=== PATIENT | male | born 1945 | race Caucasian/White ===

== ENCOUNTER 2016-10-21 11:43 | Inpatient (IN) | payer OTHER ==
[2016-10-21 13:57] LABS: % IMMATURE GRANULYOCYTES 0.4 % (0.0-1.1); ABSOLUTE IMMATURE GRANULOCYTES 0.06 10^3/uL (0.00-0.10); ADD DIFF? NO; ADD MORPH? NO; ADD SCAN? NO; ATYPICAL LYMPHOCYTE FLAG 20 (0-99); FRAGMENT RBC FLAG 0 (0-99); HEMATOCRIT 41.2 % (40.0-51.0); LEFT SHIFT FLG 10 (0-99); LIPEMIA HEMOLYSIS FLAG 90 (0-99); MEAN CELL HEMOGLOBIN 29.9 pg (27.9-34.1); MEAN PLATELET VOLUME 9.2 fL (8.7-11.7); PLATELET CLUMPS FLAG 30 (0-99); PLATELET COUNT 292 10^3/uL (150-400); RED BLOOD CELL COUNT 4.68 10^6/uL (4.40-6.38); RED CELL DISTRIBUTION WIDTH 12.5 % (11.5-15.2)
[2016-10-21] MEDS ORDERED: CLINDAMYCIN 900 MG/DEXTROSE 50 ML IV ONE (14:05)
[2016-10-21] MEDS ORDERED: IOPAMIDOL (ISOVUE-300) 100 ML BTL ONE (14:09)
--- NOTE | 2016-10-21 14:10 | EDPHY ---
H & P Stated Complaint: Boil on chin infected since Tuesday. Source: Patient Exam Limitations: No limitations - Personal History Current Tetanus/Diphtheria Vaccine: Unsure Current Tetanus Diphtheria and Acellular Pertussis (TDAP): Unsure - Medical/Surgical History Hx Asthma: No Hx Chronic Respiratory Disease: No Hx Diabetes: No Hx Cardiac Disease: No Hx Renal Disease: No Hx Cirrhosis: No Hx Alcoholism: No Hx HIV/AIDS: No Hx Splenectomy or Spleen Trauma: No Other PMH: Bipolar, appendectomy, cornea transplant x 2. - Social History Smoking Status: Current some day smoker Alcohol Use: None Drug Use: None Time Seen by Provider: 10/21/16 12:55 HPI/ROS: CHIEF COMPLAINT: chin abscess HISTORY OF PRESENT ILLNESS: 71-year-old male emergency department complaining of an abscess on his chin that started on Tuesday. Patient states he noticed a zit under his stahl 1 week ago that he picked. He noticed 2 days ago increased swelling. Patient states today he noticed an odorous drainage. Patient reports poor dental hygiene and a loose tooth on his upper right molar. He denies difficulty opening and closing his mouth. He denies fevers or chills. He denies difficulty swallowing or swelling in his throat. Patient takes no medications daily. He states he has not seen a doctor in 10 years. Unknown tetanus status. REVIEW OF SYSTEMS: A comprehensive 10 point review of systems is otherwise negative aside from elements mentioned in the history of present illness. (Danyell Morales) - Physical Exam Exam: Physical Exam Gen: Alert and Oriented, NAD, talkative HEENT: PERRL, dry mucous membranes, poor dental hygiene, open draining malodorous abscess to chin with swelling to chin, under mandible, posterior pharynx with no swelling, uvula midline, no tenderness to floor of mouth, no pain with talking or range of motion of neck. No trismus. NECK: no meningismus CV: regular rate and regular rhythm PULM: CTAB, no wheezes ABDOMEN: Obese, soft, non tender to palpation, BS present BACK: No CVA tenderness NEURO: Neurologically grossly intact EXTREMITIES: normal appearing SKIN: Multiple erythematous patches to bilateral arms PSYCH: answers questions appropriately. (Danyell Morales) Constitutional: Initial Vital Signs Temperature (C) 36.8 C 10/21/16 11:46 Heart Rate 96 10/21/16 11:46 Respiratory Rate 18 10/21/16 11:46 Blood Pressure 144/91 H 10/21/16 11:46 O2 Sat (%) 96 10/21/16 11:46 O2 Delivery Mode Room Air Allergies/Adverse Reactions: No Known Allergies Allergy (Unverified 10/21/16 11:51) Home Medications: Medication Instructions Recorded NK [No Known Home Meds] 10/21/16 Medical Decision Making - Diagnostics Imaging Results: Imaging Impressions Face CT 10/21/16 13:31 Impression: 1. Large abscess/phlegmon adjacent to the left lower mandible extending inferiorly with complex gas bubbles but no significant fluid component. 2. Erosion in the region of the left first molar in the mandible that could represent focus of osteomyelitis along the superior aspect of the abscess collection. Findings discussed with Danyell Morales NP at 15:19 hour, 10/21/2016.. Neck CT 10/21/16 13:31 Impression: 1. Large abscess/phlegmon adjacent to the left lower mandible extending inferiorly with complex gas bubbles but no significant fluid component. 2. Erosion in the region of the left first molar in the mandible that could represent focus of osteomyelitis along the superior aspect of the abscess collection. Findings discussed with Danyell Morales NP at 15:19 hour, 10/21/2016.. ED Course/Re-evaluation: IV established, CBC, chemistry panel, lactic acid, blood cultures obtained. Wound culture sent to the lab. Patient has a CBC that is elevated at 16,000 thousand with a left shift. Chemistry panel shows a mildly elevated glucose, unremarkable electrolytes. Patient has no airway compromise, no difficulty swallowing, no pain to floor of mouth. I have ordered 900 mg of IV clindamycin. 345pm- I have spoken with Dr. Shannon Maldonado with ENT who will come to the emergency department to drain this patient abscess. She is requesting admission to the hospital for IV antibiotics. 4pm- I spoke with Hospital Medicine about admission of this patient. (Danyell Morales) I did not see this patient while he was in the emergency department. However his care was discussed with the PA while the patient was in the department. I agree with treatment plan and management (Ash Coyle) Differential Diagnosis: Diagnosis considered but not limited to dental abscess, peritonsillar abscess, Seven's angina, retropharyngeal abscess (Danyell Morales) - Data Points Laboratory Results: Laboratory Results 10/21/16 13:36 10/21/16 10/21/16 10/21/16 13:41 13:36 13:36 WBC 14.89 10^3/uL H 10^3/uL (3.80-9.50) RBC 4.68 10^6/uL 10^6/uL (4.40-6.38) Hgb 14.0 g/dL g/dL (13.7-17.5) POC Hgb 15.0 gm/dL gm/dL (13.7-17.5) Hct 41.2 % % (40.0-51.0) POC Hct 44 % % (40-51) MCV 88.0 fL fL (81.5-99.8) MCH 29.9 pg pg (27.9-34.1) MCHC 34.0 g/dL g/dL (32.4-36.7) RDW 12.5 % % (11.5-15.2) Plt Count 292 10^3/uL 10^3/uL (150-400) MPV 9.2 fL fL (8.7-11.7) Neut % (Auto) 84.2 % H % (39.3-74.2) Lymph % (Auto) 5.4 % L % (15.0-45.0) [place] % (Auto) 9.4 % % (4.5-13.0) Eos % (Auto) 0.3 % L % (0.6-7.6) Baso % (Auto) 0.3 % % (0.3-1.7) Nucleat RBC Rel Count 0.0 % % (0.0-0.2) Absolute Neuts (auto) 12.53 10^3/uL H 10^3/uL (1.70-6.50) Absolute Lymphs (auto) 0.80 10^3/uL L 10^3/uL (1.00-3.00) Absolute Monos (auto) 1.40 10^3/uL H 10^3/uL (0.30-0.80) Absolute Eos (auto) 0.05 10^3/uL 10^3/uL (0.03-0.40) Absolute Basos (auto) 0.05 10^3/uL 10^3/uL (0.02-0.10) Absolute Nucleated RBC 0.00 10^3/uL 10^3/uL (0-0.01) Immature Gran % 0.4 % % (0.0-1.1) Immature Gran # 0.06 10^3/uL 10^3/uL (0.00-0.10) VBG Lactic Acid 0.9 mmol/L mmol/L (0.7-2.1) POC Sodium 137 mEq/L mEq/L (134-144) POC Potassium 3.7 mEq/L mEq/L (3.3-5.0) POC Chloride 100 mEq/L mEq/L (97-110) POC BUN 19 mg/dL mg/dL (7-23) POC Creatinine 0.8 mg/dL mg/dL (0.7-1.3) POC Glucose 120 mg/dL H mg/dL (70-100) Microbiology Results: MICROBIOLOGY 10/21/16 13:32 Face - Swab Gram Stain - Final Medications Given: Discontinued Medications Diphtheria/Tetanus/Acell Pertussis (Boostrix) 0.5 ml IM .ONCE ONE Stop: 10/21/16 15:53 Last Admin: 10/21/16 16:42 Dose: 0.5 ml Clindamycin Phosphate/Dextrose (Cleocin 900 Mg (Premix)) 50 mls @ 100 mls/hr IV EDNOW ONE PRN Reason: Protocol Stop: 10/21/16 14:34 Last Admin: 10/21/16 14:38 Dose: 50 mls Point of Care Test Results: 10/21/16 13:41 POC Sodium 137 POC Potassium 3.7 POC Chloride 100 POC BUN 19 POC Creatinine 0.8 POC Glucose 120 H Departure - Departure Disposition: [facility] Inpatient Acute Clinical Impression: Facial abscess Condition: Good
[2016-10-21] MEDS ORDERED: TDAP ADULT 0.5 ML INJ (BOOSTRIX) IM ONE (15:52)
[2016-10-21] MEDS ORDERED: ALBUTEROL 3 ML DEYVIAL IH PRN (16:18)
[2016-10-21] MEDS ORDERED: ONDANSETRON 4 MG/2 ML VIAL IVP PRN (16:18)
[2016-10-21] MEDS ORDERED: HYDROCODONE/APAP 5/325 TAB PO PRN (16:18)
[2016-10-21] MEDS ORDERED: ONDANSETRON DISINTEGRATING 4 MG TAB PO PRN (16:18)
[2016-10-21] MEDS ORDERED: ACETAMINOPHEN 325 MG TAB PO PRN (16:18)
--- NOTE | 2016-10-21 16:25 | PDGENHP ---
History and Physical - Chief Complaint mouth swelling - History of Present Illness 71 yo male with admitted for left mandible abscess. Presented to the ED with 2 days hx of progressive mouth/jaw pain and swelling. CT found to have Left lower mandible abscess with likely osteomyelitis. Started on clindamycin. Afebrile. Denies difficulty swelling, SOB, CP, leg swelling, or other. No recent abx. Has not seen a physician in over 10 years Was seen by ENT in the E.D who appeared to have done a bedside I&D PMHx: bipolar, appendectomy, corneal transplant x 2 Soc Hx: smoker FmHx: non contributory History Information - Allergies/Home Medication List Allergies/Adverse Reactions: No Known Allergies Allergy (Unverified 10/21/16 11:51) Home Medications: NK [No Known Home Meds] 10/21/16 [Last Taken Unknown] I have personally reviewed and updated: medical history, social history - Social History Smoking Status: Current some day smoker Alcohol Use: None Drug Use: None Review of Systems ROS: 10pt was reviewed & negative except for what was stated in HPI & below Physical Exam Temp Pulse Resp BP Pulse Ox 37 C 82 19 129/84 H 98 10/21/16 14:35 10/21/16 14:35 10/21/16 14:35 10/21/16 14:35 10/21/16 14:35 Constitutional: no apparent distress Eyes: PERRL, EOMI Ears, Nose, Mouth, Throat: poor dentition, other (left sided mandible with dressing in place. oropharynx is clear) Cardiovascular: regular rate and rhythym, No JVD Respiratory: no respiratory distress, clear to auscultation Gastrointestinal: normoactive bowel sounds, soft, non-tender abdomen Skin: warm, normal color Neurologic: AAOx3 Psychiatric: interacting appropriately, not encephalopathic Lab Data & Imaging Review 10/21/16 13:36 WBC 14.89 10^3/uL (3.80-9.50) H 10/21/16 13:36 RBC 4.68 10^6/uL (4.40-6.38) 10/21/16 13:36 Hgb 14.0 g/dL (13.7-17.5) 10/21/16 13:36 POC Hgb 15.0 gm/dL (13.7-17.5) 10/21/16 13:41 Hct 41.2 % (40.0-51.0) 10/21/16 13:36 POC Hct 44 % (40-51) 10/21/16 13:41 MCV 88.0 fL (81.5-99.8) 10/21/16 13:36 MCH 29.9 pg (27.9-34.1) 10/21/16 13:36 MCHC 34.0 g/dL (32.4-36.7) 10/21/16 13:36 RDW 12.5 % (11.5-15.2) 10/21/16 13:36 Plt Count 292 10^3/uL (150-400) 10/21/16 13:36 MPV 9.2 fL (8.7-11.7) 10/21/16 13:36 Neut % (Auto) 84.2 % (39.3-74.2) H 10/21/16 13:36 Lymph % (Auto) 5.4 % (15.0-45.0) L 10/21/16 13:36 [place] % (Auto) 9.4 % (4.5-13.0) 10/21/16 13:36 Eos % (Auto) 0.3 % (0.6-7.6) L 10/21/16 13:36 Baso % (Auto) 0.3 % (0.3-1.7) 10/21/16 13:36 Nucleat RBC Rel Count 0.0 % (0.0-0.2) 10/21/16 13:36 Absolute Neuts (auto) 12.53 10^3/uL (1.70-6.50) H 10/21/16 13:36 Absolute Lymphs (auto) 0.80 10^3/uL (1.00-3.00) L 10/21/16 13:36 Absolute Monos (auto) 1.40 10^3/uL (0.30-0.80) H 10/21/16 13:36 Absolute Eos (auto) 0.05 10^3/uL (0.03-0.40) 10/21/16 13:36 Absolute Basos (auto) 0.05 10^3/uL (0.02-0.10) 10/21/16 13:36 Absolute Nucleated RBC 0.00 10^3/uL (0-0.01) 10/21/16 13:36 Immature Gran % 0.4 % (0.0-1.1) 10/21/16 13:36 Immature Gran # 0.06 10^3/uL (0.00-0.10) 10/21/16 13:36 VBG Lactic Acid 0.9 mmol/L (0.7-2.1) 10/21/16 13:36 POC Sodium 137 mEq/L (134-144) 10/21/16 13:41 POC Potassium 3.7 mEq/L (3.3-5.0) 10/21/16 13:41 POC Chloride 100 mEq/L (97-110) 10/21/16 13:41 POC BUN 19 mg/dL (7-23) 10/21/16 13:41 POC Creatinine 0.8 mg/dL (0.7-1.3) 10/21/16 13:41 POC Glucose 120 mg/dL (70-100) H 10/21/16 13:41 Assessment & Plan Assessment: #Left lower mandible abscess and likely osteomyelitis(Acute) #Hx of Bipolar, not on medications #Leukocytosis Plan: Admit ENT is following the patient IV Abx: Continue clindamycin Await cultures: blood, wound May need ID consult Start IVF Pain mgmt SCD's Full Code
[2016-10-21 17:27] LABS: COLOR YELLOW; LEUKOCYTE ESTERASE,URINE NEGATIVE (NEGATIVE); NITRITE,URINE NEGATIVE (NEGATIVE)
[2016-10-21 17:33] LABS: MUCUS TRACE /lpf (NONE-1+)
--- NOTE | 2016-10-21 19:12 | GCON ---
[f rep st] CONSULTATION ENT CONSULTATION DATE OF CONSULTATION: 10/21/2016 REFERRING PHYSICIAN: Richar Bernard MD REASON FOR CONSULTATION: Neck abscess. HISTORY: The patient is a 71-year-old man who presented to the emergency department complaining of an infection on his chin. The patient states that he noticed a pimple on his chin about a week ago and he picked at it. He then states that over the last 2 days he has had increased swelling of his chin and neck and noted spontaneous drainage of pus today which was quite foul smelling. He says th at he has some bad teeth and some better actually loose. He told me that he had been camping out in the [facility] the other day and drinking some alcohol and smoking some marijuana and that he felt like the swelling got worse at that time. He denies any trouble breathing. He says his voice is unchang ed. He has no trouble opening and closing the mouth. He denies any fevers and chills. He says he is on no daily medication and that he has not seen a doctor in close to a decade. He stated that he lives down in [place] although I get the sense that he might be homeless and seems to have some psyc hiatric disease given the fact that he was mentioning running from [place] [employer] in the [facility] ago. SOCIAL HISTORY: The patient smokes daily, both cigarettes and marijuana. States he sometimes drink s "a few beers." PHYSICAL EXAM: GENERAL: The patient was alert and oriented. He was very talkative and had some pr essured speech. He denied any pain. VITAL SIGNS: Temperature was 36.8 degree Celsius, heart rate of 96, respiratory rate 18, blood pressure on admission was 144/91, with an O2 saturation of 96% on room air. HEAD AND NECK: The patient has massive swelling of the anterior neck and to the left of midline in the neck. The skin was red and indurated and spontaneously draining very foul-smelling p us. EAR: Exam was unremarkable. NASAL: Clear of any abnormality. ORAL CAVITY: Poor dentition. He had numerous loose teeth. No evidence of any trismus. Interestingly, the floor of mouth looked completely normal with no swelling, erythema or tenderness. There was some tenderness on the later al aspect of the mandible from the mentum extending back to the left side along his anterior remaini ng teeth on the left. His molars appear to have fallen out spontaneously, have been extracted at so me point in the remote past. PHARYNX: Clear. NECK: As mentioned, patient has massive neck absces s, spontaneously draining pus. IMAGING STUDIES: I examined the CT images and the report as well. The patient has a rather remarka ble amount of gas in the subcutaneous tissues deep to the platysma and the adjacent to the hyoid bon e. No sign of any spread down into the lower neck or upper mediastinum. There is erosion in the re gion of the left 1st molar and the mandible, a possible focus of the initial infection although this could use from one of his remaining teeth as well. PROCEDURE: Flexible fiberoptic laryngoscopy. I performed a flexible laryngoscopy going through bot h sides of the nose and examined the nasopharynx which were all normal. Hypopharynx and larynx exam was notable only for a small piece of burgundy-colored boudreaux skin in the vallecula. At first I di d not know what this was until I asked the patient what he had been eating and he mentioned he had b een eating cherries before coming into the ER. No pooling of secretions in the piriform sinuses. N o swelling of the epiglottis. No posterior compression of the larynx. Vocal cords were completely visible. Moved well on phonation and respiration. Base of tongue did not appear swollen at all. Incision and drainage of left and anterior deep neck infection. The patient's skin adjacent to the larger of the spontaneously draining defects in the skin at the chin and lower down on the neck were both infiltrated with lidocaine with epinephrine by my PA, Shannon Maldonado. She may have dictated this already. She had placed a small [place] drain in but I removed this and instead, in the lower incis ion, placed a long tonsil clamp deep into the abscess pocket and spread, breaking down any potential loculations, expressing quite a bit of pus at this point. I then deeply placed a long Fan drai n and secured it to the skin. Adjacent to the mandible, I likewise spread down to the periosteum of the mandible and placed a smaller [place] drain and secured it with a suture. A dressing was place d to capture the drainage of which there was a significant amount during the exam and during the gordon inage of the abscess itself. LABORATORY DATA: White count 14.9, hemoglobin of 14, platelets of 292, neutrophils elevated at 84%. Blood cultures and wound culture pending. IMPRESSION: Large anterior neck abscess of odontogenic origin in a patient with poor dental hygiene . His airway was remarkably normal today and he had no complaints of any discomfort at all, which w as quite surprising given his physical exam. We got a lot of pus out here in the ER and I do not th ink going to the operating room would give us any advantage at this point in time. I do think it wo uld be beneficial for him to have some of these teeth with the advanced dental decay removed. I dis cussed this with Dr. Butt, who is the emergency physician at the time I was seeing the patient, a nd they will consult oral surgery to talk about potential dental extractions. We will follow the stefano adler tomorrow. He will be admitted and placed on intravenous antibiotic therapy at this time. Thank you for this consultation. /[id number]/MODL
--- NOTE | 2016-10-21 19:36 | GCON ---
[f rep st] CONSULTATION CHIEF COMPLAINT: Chin abscess. HISTORY OF PRESENT ILLNESS: The patient is a 71-year-old gentleman, who presented to the emergency department for a chin abscess. He states he started noticing it a week ago, on Tuesday, and then 2 days ago he noticed significant increase in swelling and discomfort, and then today it started spontaneously draining. The patient states that he has very poor dentition and, in fact, on the right says he has a tooth that his about to fall out completely. He notes no trismus or fevers or chills. He denies any difficulty breathing or swallowing. PAST MEDICAL HISTORY: Significant for bipolar disorder, cornea transplant, and an appendectomy. SOCIAL HISTORY: He is a smoker. ALLERGIES: No known drug allergies. PHYSICAL EXAMINATION: GENERAL: Patient is alert and oriented and walking around the room, in no acute distress. HEENT: Head is atraumatic, normocephalic. Ears are clear. Nose is clear. Oropharynx with 3 loose teeth along the left lowers and a loose tooth on the right. Patient has a significant amount of swelling and purulence around the chin, extending down along the left angle of the mandible and in the submental area. He is spontaneously draining from 3 spots from the chin area. PROCEDURE: The chin and left mandible were anesthetized with Lidoderm plus epi using a #11 blade. An incision was made in one of the spontaneous openings already present on the chin. A significant amount of purulence was expressed and a [place] drain was placed. In regard to his lower mandible area, an incision was made and a significant amount of purulence was expressed. The area was opened up almost 2 inches fully in size and a [place] drain was placed. Review of his CT scan shows a large abscess with numerous gas bubbles, extending along the left margin of the mandible, measuring about 6.3 cm. This extends deep to the platysma, to the floor of the mouth below the tongue, with posterior extension anterior to the hyoid, with another connecting pocket measuring about 3.3 x 1.1 cm. There is erosion of the previous left 1st molar and associated osteomyelitis. There is erosion around the roots of the left canine and the alveolar ridge. Fiberoptic laryngoscopy was performed. He has no concerning features for his airway. Everything is patent, no masses. ASSESSMENT AND PLAN: Patient with a very large abscess arising from his dental roots. Oral Surgery will be consulted as the teeth will likely need to be pulled. He is currently on IV clindamycin and this will be continued and he will be admitted to the hospital for further observation. We will see him in the morning to make sure he is improving. Pt was seen with Dr. Hannon. /[id number]/MODL MTDD
[2016-10-21] MEDS: CLINDAMYCIN 900 MG/DEXTROSE 50 ML IV SCH (22:07)
[2016-10-22 05:05] LABS: % IMMATURE GRANULYOCYTES 0.5 % (0.0-1.1); ABSOLUTE IMMATURE GRANULOCYTES 0.06 10^3/uL (0.00-0.10); ADD DIFF? NO; ADD MORPH? NO; ADD SCAN? NO; ATYPICAL LYMPHOCYTE FLAG 40 (0-99); FRAGMENT RBC FLAG 0 (0-99); HEMATOCRIT 39.7 % (40.0-51.0); HEMOGLOBIN 13.3 g/dL (13.7-17.5); LEFT SHIFT FLG 10 (0-99); LIPEMIA HEMOLYSIS FLAG 80 (0-99); MEAN CELL HEMOGLOBIN 29.8 pg (27.9-34.1); MEAN CELL HEMOGLOBIN CONCENTR. 33.5 g/dL (32.4-36.7); MEAN PLATELET VOLUME 9.2 fL (8.7-11.7); PLATELET CLUMPS FLAG 0 (0-99); PLATELET COUNT 266 10^3/uL (150-400); RED BLOOD CELL COUNT 4.46 10^6/uL (4.40-6.38); RED CELL DISTRIBUTION WIDTH 12.4 % (11.5-15.2)
[2016-10-22] MEDS: CLINDAMYCIN 900 MG/DEXTROSE 50 ML IV SCH ×2 (05:21→13:24)
[2016-10-22 05:27] LABS: ANION GAP 11 mEq/L (8-16); CALCIUM 7.9 mg/dL (8.5-10.4); CARBON DIOXIDE 20 mEq/l (22-31); CHLORIDE 105 mEq/L (97-110); CREATININE 0.9 mg/dL (0.7-1.3); GLOMERULAR FILTRATION RATE > 60; GLUCOSE 106 mg/dL (70-100); MAGNESIUM 2.2 mg/dL (1.6-2.3); POTASSIUM 3.8 mEq/L (3.5-5.2); SODIUM 136 mEq/L (134-144)
--- NOTE | 2016-10-22 13:21 | SOAPPROG ---
SOAP Progress Note Assessment/Plan: Assessment: 71 year old male s/p I&D of large anterior neck abscess. He is doing well today. Continues to be significant purulence from john and surrounding areas. - Continue john until purulence has significantly improved - Patient will need to be in house until dental extractions as his infection will likely continue - Antibiotics per medicine team - Recommend dressing changes by nursing staff twice daily through the weekend - - ENT will see patient again on Tuesday -- until dental extractions, would not recommend removing john drain I discussed plan with Dr. Hannon and he agrees with above 10/22/16 13:21 10/22/16 13:23 10/22/16 14:31 10/22/16 15:15 10/22/16 15:18 Subjective: Improved pain. He thinks swelling has improved. Still with purulent drainage. Objective: Vital Signs Temp Pulse Resp BP Pulse Ox 36.8 C 84 16 125/73 H 95 10/22/16 08:23 10/22/16 08:23 10/22/16 08:23 10/22/16 08:23 10/22/16 08:23 Laboratory Results 10/22/16 04:49 10/22/16 04:49 10/21/16 10/22/16 10/23/16 05:59 05:59 05:59 Intake Total 1550 500 Balance 1550 500 Voice strong, no stridor Erythema/edema continues Significant purulence expressed through john as well as other sites Mild fluctuance OP is normal FOM is soft ICD10 Worksheet Patient Problems: Problems Problem Status Onset Facial abscess Acute
--- NOTE | 2016-10-22 13:31 | HOSPPROG ---
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 no acute complaints Objective: Vital Signs Temp Pulse Resp BP Pulse Ox 36.8 C 84 16 125/73 H 95 10/22/16 08:23 10/22/16 08:23 10/22/16 08:23 10/22/16 08:23 10/22/16 08:23 Laboratory Results 10/22/16 04:49 10/22/16 04:49 10/21/16 10/22/16 10/23/16 05:59 05:59 05:59 Intake Total 1550 500 Balance 1550 500 - Physical Exam Constitutional: no apparent distress, appears nourished, not in pain Ears, Nose, Mouth, Throat: other (foul smelling draining abscess ant left neck with john drain inplace) Cardiovascular: regular rate and rhythym, no murmur, rub, or gallop Respiratory: no respiratory distress, no rales or rhonchi, clear to auscultation Gastrointestinal: normoactive bowel sounds, soft, non-tender abdomen, no palpable masses, No guarding, No rebound ICD10 Worksheet Patient Problems: Problems Problem Status Onset Facial abscess Acute
[2016-10-22] MEDS ORDERED: MAGNESIUM HYDROXIDE 30 ML UDCUP PO PRN (13:34)
[2016-10-22] MEDS ORDERED: oxyCODONE IR 5 MG TAB PO PRN (13:34)
[2016-10-22] MEDS ORDERED: POLYETHYLENE GLYCOL 3350 17 GM PKT PO PRN (13:34)
[2016-10-22] MEDS ORDERED: BISACODYL 10 MG SUPP PR PRN (13:34)
[2016-10-22] MEDS ORDERED: LACTULOSE 20 GM/30 ML UDCUP PO PRN (13:34)
[2016-10-22] MEDS: AMPICILLIN/SULBACTAM 3 GM in NS 100 ML IV SCH (18:07)
--- NOTE | 2016-10-22 20:01 | GCON ---
[f rep st] CONSULTATION DATE OF CONSULTATION: 10/22/2016 REFERRING PHYSICIAN: Ubaldo Sommers DO REASON FOR CONSULTATION: Facial/neck abscess. HISTORY OF PRESENT ILLNESS: The patient is a 71-year-old male with a past medical history of bipola r disorder, who I am asked to see in consultation for a left-sided mandibular and anterior neck absc ess. The patient is a poor historian with tangential history provided making it difficult to assess time line exactly. The patient describes having problems with his teeth for a prolonged period and has not been to a dentist recently. He had been advised to have total mouth extraction in the past . The patient describes having 2 days' of increasing jaw pain and swelling with subsequent involvem ent of the left anterior neck. He did not note having fever or chills. He did not note having diff iculty opening his mouth fully. There was no change in voice. The patient was seen in the emergenc y department, at which point in time a CT scan of the neck and face was performed, which revealed a 6.3 x 5.7 x 6.5 cm abscess with numerous gas bubbles in the subcutaneous tissues along the left infe rior margin of the mandible, which extends deep to the platysmas musculature at the floor of the meagan th with a secondary pocket measuring 3.3 x 1.1 cm. The patient's mandible showed erosive changes at the site of prior left molar. The patient underwent incision and drainage by ENT with placement of [place] drain. Cultures are currently growing group A Streptococcus and Streptococcus constellatus . Blood cultures are pending. Patient notes he feels significantly improved post drainage. The stefano adler has been receiving clindamycin since hospitalization. Given the above findings, I am now aske d to assist in his ongoing management. PAST MEDICAL HISTORY: Bipolar disorder, odontogenic problems as outlined above. PAST SURGICAL HISTORY: As above, corneal transplant. CURRENT MEDICATIONS: Clindamycin 900 mg IV q.8 hours, morphine as needed, Senokot 1-2 p.o. b.i.d., Proventil nebs as needed. ALLERGIES: No known drug allergies. SOCIAL HISTORY: Patient smokes 4-5 cigarettes daily. He notes that he smokes marijuana. He drinks alcohol sporadically. FAMILY HISTORY: Mother with bipolar disorder. REVIEW OF SYSTEMS: Outside that noted in the HPI, remainder of 10-system review is unremarkable. PHYSICAL EXAMINATION: VITAL SIGNS: Temperature 36.7, heart rate 86, respiratory rate 18, blood pre ssure 144/78, oxygen saturation 95% on room air. GENERAL: Patient is disheveled in appearance in n o acute distress. He appears nontoxic. HEENT: There is no scleral icterus, conjunctival injection , or conjunctival petechiae. Oropharynx shows dentition in significantly poor repair with halitosis being marked; the patient has an opening over the left jaw, from which purulence can be expressed. The patient has a Fan drain in the anterior neck on the left as well as another open sinus trac t, from which chocolate-brown, foul-smelling purulence can be expressed; there is overlying erythema present; there is mild associated tenderness. The patient is able to fully open his mouth. NECK: See HEENT exam. There is no stridor present. CHEST: Clear to auscultation bilaterally without ad ventitious sounds. Respiratory effort is normal. CARDIOVASCULAR: Regular rate and rhythm without murmurs, gallops, or rubs. ABDOMEN: Soft, nontender, nondistended. There is no palpable organomeg zoraida. Bowel sounds are present. MUSCULOSKELETAL: No cyanosis, clubbing, or edema. SKIN: There is scattered areas of shallow ulceration over the lower extremities as well as a small ulceration over the left thumb. NEUROLOGIC: Patient is alert with grossly intact cranial nerves. Muscle tone and bulk are normal. Sensation is grossly intact. PSYCHIATRIC: The patient is quite tangential in hi s responses to questions. LYMPHATICS: Difficult to fully assess cervical lymphadenopathy based on abscess formation. No supraclavicular nodes noted. LABORATORY DATA: White blood cell count 10.9, hematocrit 39.7, platelets 266, neutrophils 80%. Ser um creatinine 0.9. Venous lactate 0.9. Gram stain of the patient's abscess shows 2+ white blood ce lls, with 3+ gram-positive cocci, 2+ gram-positive rods, and 3+ gram negative pleomorphic rods with growth of Streptococcus constellatus and group A streptococcus. Blood cultures x2 sets pending. CT as outlined above, which was reviewed and interpreted by me today. IMPRESSION: Left mandibular/neck abscess, status post incision and drainage: Most likely, this is of odontogenic etiology with polymicrobial cultures as outlined above. Actinomyces could certainly be contributing in such circumstances. Based on the clinical findings, suspect patient will require additional incision and drainage as there is still significant thick purulent material from multipl e exit sites. Agree with plans for MRI to further define bony abnormalities along mandible. Agree with plans for oral surgery consultation as dental extraction will be necessary for definitive treat ment. RECOMMENDATIONS: 1. Unasyn 3 g IV q.6 hours. 2. Discontinue clindamycin. 3. Follow up culture data as available. 4. Follow up MRI as available. 5. Assess clinical response to above measures; concern will require additional incision and drainag e given volume of residual purulent material. Thank you for this consultation. We will continue to follow the patient with you. /[id number]/MODL
[2016-10-22] MEDS ORDERED: GADOBUTROL 10 ML VIAL IVP ONE (20:51)
[2016-10-22] MEDS: SENNOSIDES/DOCUSATE SODIUM TAB PO SCH ×2 (21:41→22:45)
[2016-10-23] MEDS: AMPICILLIN/SULBACTAM 3 GM in NS 100 ML IV SCH ×5 (00:11→23:26)
[2016-10-23] MEDS: NS 1,000 ML IV SCH (05:38)
--- NOTE | 2016-10-23 10:26 | PCMIDPN ---
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 MRI findings reviewed showing changes consistent with mandibular osteomyelitis. Cultures have shown growth of group A Streptococcus and Streptococcus constellatus. Concern Actinomyces may also be contributor. Explained to patient that he needs continued inpatient care and will require dental extraction. Continue Unasyn. * Bipolar disorder: Patient agitated and quite tangential and feels like he is being kept "in long term". He will be evaluated by psychiatric service today to assist in his ongoing management. 10/23/16 10:21 Subjective: Patient complains of being in hospital; he is bothered by temperature of his room, noises from IV pump, and concerned about care of his dog. Objective: Vital Signs Temp Pulse Resp BP Pulse Ox 36.8 C 88 16 140/80 H 94 10/23/16 08:20 10/23/16 08:20 10/23/16 08:20 10/23/16 08:20 10/23/16 08:20 Laboratory Results 10/22/16 04:49 10/22/16 04:49 10/22/16 10/23/16 10/24/16 05:59 05:59 05:59 Intake Total 1550 1996.5 500 Balance 1550 1997.5 500 Unasyn # 1 (status post clindamycin) Blood cultures x2 sets no growth Abscess culture with growth of group A Streptococcus and Streptococcus constellatus MRI shows residual abscess with findings consistent with mandibular osteomyelitis - Physical Exam General Appearance: alert, non-toxic, other (Agitated) EENT: poor dentition, other (Sinus tract over mandibular region with drainage of purulent material) Neck: other (Persistent purulent drainage which is brown but less dark than prior; drainage remains malodorous; mild overlying erythema without tenderness; degree of edema has decreased) ICD10 Worksheet Patient Problems: Problems Problem Status Onset Facial abscess Acute
[2016-10-23] MEDS: SENNOSIDES/DOCUSATE SODIUM TAB PO SCH ×2 (10:36→23:31)
[2016-10-23] MEDS: OLANZapine 5 MG TAB PO SCH ×2 (11:39→23:31)
--- NOTE | 2016-10-23 15:44 | HOSPPROG ---
Hospitalist Progress Note Assessment/Plan: #Left lower mandible abscess and likely osteomyelitis(Acute) * continue IV Unasyn * infectious Disease is following #Hx of Bipolar, not on medications * discussed with Psychiatry * will start Zyprexa twice daily * can increase in use for p.r.n. Subjective: has multiple complaints that appear more like paranoia Objective: Vital Signs Temp Pulse Resp BP Pulse Ox 36.8 C 88 16 140/80 H 94 10/23/16 08:20 10/23/16 08:20 10/23/16 08:20 10/23/16 08:20 10/23/16 08:20 Laboratory Results 10/22/16 04:49 10/22/16 04:49 10/22/16 10/23/16 10/24/16 05:59 05:59 05:59 Intake Total 1550 1996.5 500 Balance 1550 1996.5 500 discussed with Infectious Disease and Psychiatry - Physical Exam Constitutional: no apparent distress, appears nourished, not in pain Eyes: anicteric sclera, EOMI Ears, Nose, Mouth, Throat: other ( drain in mouth) Respiratory: no respiratory distress, no rales or rhonchi, clear to auscultation Gastrointestinal: normoactive bowel sounds, soft, non-tender abdomen, no palpable masses Skin: warm Neurologic: AAOx3 Psychiatric: agitated, other ( tangential and paranoid) ICD10 Worksheet Patient Problems: Problems Problem Status Onset Facial abscess Acute
[2016-10-23 18:36] LABS: COLOR YELLOW; LEUKOCYTE ESTERASE,URINE NEGATIVE (NEGATIVE); NITRITE,URINE NEGATIVE (NEGATIVE)
[2016-10-23 18:41] LABS: MUCUS TRACE /lpf (NONE-1+)
[2016-10-23 18:58] LABS: PHENCYCLIDINE URINE BCH < 6 ng/ml (NEGATIVE); PHENCYCLIDINE URINE BCH NEGATIVE (NEGATIVE); TETRAHYDROCANNABINOL URINE 77 ng/mL (NEGATIVE)
[2016-10-24] MEDS: AMPICILLIN/SULBACTAM 3 GM in NS 100 ML IV SCH ×3 (05:28→17:46)
[2016-10-24] MEDS: OLANZapine 5 MG TAB PO SCH ×2 (08:28→20:13)
[2016-10-24] MEDS: SENNOSIDES/DOCUSATE SODIUM TAB PO SCH ×2 (08:30→20:14)
--- NOTE | 2016-10-24 10:30 | PCMIDPN ---
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 Continue Unasyn. Plan for oral surgery evaluation tomorrow. Will make NPO after midnight in event extractions can be performed tomorrow. * Bipolar disorder: Less agitated today with addition of Zyprexa. 10/24/16 10:25 Subjective: Feels much better today. No significant jaw pain. Eating without difficulty. Objective: Vital Signs Temp Pulse Resp BP Pulse Ox 36.6 C 90 16 131/82 H 96 10/24/16 07:21 10/24/16 07:21 10/24/16 07:21 10/24/16 07:21 10/24/16 07:21 Laboratory Results 10/22/16 04:49 10/22/16 04:49 10/23/16 10/24/16 10/25/16 05:59 05:59 05:59 Intake Total 1996.5 1250 Balance 1996.5 1250 Unasyn # 2 Blood cultures x2 no growth Abscess cultures with growth of group A Streptococcus and Streptococcus constellatus - Physical Exam General Appearance: alert, no apparent distress EENT: poor dentition, No scleral icterus, No thrush Neck: other (Less erythema and edema with some expressed purulence but less copious than previous) Cardiac/Chest: regular rate, rhythm, No systolic murmur Abdomen: non-tender, No distended Neuro/Psych: other ( less agitation) ICD10 Worksheet Patient Problems: Problems Problem Status Onset Facial abscess Acute
--- NOTE | 2016-10-24 14:42 | HOSPPROG ---
Hospitalist Progress Note Assessment/Plan: #Left lower mandible abscess and likely osteomyelitis(Acute) * continue IV Unasyn * infectious Disease is following * Oral surgery to see tomorrow #Hx of Bipolar, not on medications * discussed with Psychiatry * Better with Zyprexa * can increase in use for p.r.n. Subjective: Seems more calm and appropriate Objective: Vital Signs Temp Pulse Resp BP Pulse Ox 36.6 C 90 16 131/82 H 96 10/24/16 07:21 10/24/16 07:21 10/24/16 07:21 10/24/16 07:21 10/24/16 07:21 Laboratory Results 10/22/16 04:49 10/22/16 04:49 10/23/16 10/24/16 10/25/16 05:59 05:59 05:59 Intake Total 1996.5 1250 Balance 5 1250 - Physical Exam Constitutional: no apparent distress, appears nourished, not in pain Eyes: anicteric sclera, EOMI Ears, Nose, Mouth, Throat: moist mucous membranes, other (Purulent drainage) Cardiovascular: regular rate and rhythym, no murmur, rub, or gallop Respiratory: no respiratory distress Skin: warm Neurologic: AAOx3 Psychiatric: interacting appropriately, not anxious, not encephalopathic, thought process linear ICD10 Worksheet Patient Problems: Problems Problem Status Onset Facial abscess Acute
[2016-10-25] MEDS: AMPICILLIN/SULBACTAM 3 GM in NS 100 ML IV SCH ×4 (00:11→17:55)
[2016-10-25] MEDS: OLANZapine 5 MG TAB PO SCH ×2 (09:46→21:51)
[2016-10-25] MEDS: SENNOSIDES/DOCUSATE SODIUM TAB PO SCH ×2 (10:22→21:52)
--- NOTE | 2016-10-25 11:02 | SOAPPROG ---
SOAP Progress Note Assessment/Plan: Assessment: 71 year old male s/p I&D of large anterior neck abscess. He is doing well today. Fan fell out over the weekend. Objectively he has had significant improvement. Still with purulence but edema/erythema has improved. - Patient will need to be in house until dental extractions as his infection will likely continue - Antibiotics per medicine team - Recommend dressing changes by nursing staff twice daily At this point, ENT will sign off. Once patient undergoes dental extractions, his infection should resolve. I discussed plan with Dr. Hannon and he agrees with above 10/22/16 13:21 10/22/16 13:23 10/22/16 14:31 10/22/16 15:15 10/22/16 15:18 10/25/16 10:58 Subjective: 71 year old male s/p I&D of large anterior neck abscess. He is doing well today. Fan fell out over the weekend. Sounds like oral surgery is going to see today for hopefully dental extractions. Objective: Vital Signs Temp Pulse Resp BP Pulse Ox 36.6 C 96 18 137/84 H 94 10/25/16 07:25 10/25/16 07:25 10/25/16 07:25 10/25/16 07:25 10/25/16 07:25 Laboratory Results 10/22/16 04:49 10/22/16 04:49 10/24/16 10/25/16 10/26/16 05:59 05:59 05:59 Intake Total 1250 1600 Balance 1250 1600 Fan fell out Still with purulent drainage but improved Edema/erythema significantly improved FOM soft OP normal ICD10 Worksheet Patient Problems: Problems Problem Status Onset Facial abscess Acute
[2016-10-25] MEDS: NS 1,000 ML IV SCH (14:01)
--- NOTE | 2016-10-25 15:48 | HOSPPROG ---
Hospitalist Progress Note Assessment/Plan: #Left lower mandible abscess and likely osteomyelitis(Acute) * continue IV Unasyn * infectious Disease is following * Oral surgery to see today for probable extraction #Hx of Bipolar, not on medications * discussed with Psychiatry * Better with Zyprexa * can increase in use for p.r.n. Subjective: No new complaints. Much more cooperative. Sleeping well Objective: Vital Signs Temp Pulse Resp BP Pulse Ox 36.6 C 98 18 122/78 H 92 10/25/16 15:17 10/25/16 15:17 10/25/16 15:17 10/25/16 15:17 10/25/16 15:17 Laboratory Results 10/22/16 04:49 10/22/16 04:49 10/24/16 10/25/16 10/26/16 05:59 05:59 05:59 Intake Total 1250 1600 Balance 1250 1600 - Physical Exam Constitutional: no apparent distress, appears nourished, not in pain Eyes: anicteric sclera, EOMI Cardiovascular: regular rate and rhythym Respiratory: no respiratory distress, no rales or rhonchi, clear to auscultation Gastrointestinal: normoactive bowel sounds, soft, non-tender abdomen, no palpable masses Neurologic: AAOx3 Psychiatric: interacting appropriately, not anxious, not encephalopathic, thought process linear ICD10 Worksheet Patient Problems: Problems Problem Status Onset Facial abscess Acute
[2016-10-25] MEDS ORDERED: LIDO/EPI 2% **for epidural** 20 ML SDV ONE (18:12)
[2016-10-25] MEDS ORDERED: BACITRACIN 50,000 UNITS/10 ML SYR IRR ONE (18:13)
[2016-10-25] MEDS ORDERED: MIDAZOLAM 2 MG/2 ML VIAL IVP ONE (18:59)
--- NOTE | 2016-10-25 18:59 | PDANEPAE ---
ANE History of Present Illness 71 yo for tooth extraction and I and d neck ANE Past Medical History - Cardiovascular History Hx Hypertension: No Hx Arrhythmias: No Hx Chest Pain: No Hx Coronary Artery / Peripheral Vascular Disease: No Hx CHF / Valvular Disease: No Hx Palpitations: No - Pulmonary History Hx COPD: No Hx Asthma/Reactive Airway Disease: No Hx Recent Upper Respiratory Infection: No Hx Oxygen in Use at Home: No Hx Sleep Apnea: No Sleep Apnea Screening Result - Last Documented: Positive - Neurologic History Neurologic History Comment: bipolar - Endocrine History Hx Diabetes: No - Chronic Pain History Chronic Pain: No ANE Review of Systems Review of systems is: negative - Exercise capacity METS (RN): 4 METS ANE Patient History - Allergies Allergies/Adverse Reactions: No Known Allergies Allergy (Unverified 10/21/16 11:51) - Home Medications Home medications: home medication list seen and reviewed Home Medications: NK [No Known Home Meds] 10/21/16 [Last Taken Unknown] - NPO status NPO Since - Liquids (Date): 10/24/16 NPO Since - Liquids (Time): 20:00 NPO Since - Solids (Date): 10/24/16 NPO Since - Solids (Time): 20:00 - Anes Hx Anes Hx: no prior problems - Smoking Hx Smoking Status: Current some day smoker - Alcohol Use Alcohol Use: None ANE Labs/Vital Signs - Labs Result Diagrams: 10/22/16 04:49 10/22/16 04:49 - Vital Signs Blood Pressure: 122/78 Heart Rate: 98 Respiratory Rate: 18 O2 Sat (%): 92 Height: 5 ft 6 in Weight: 86.183 kg ANE Physical Exam - Airway Neck exam: FROM Mallampati Score: Class 2 Mouth exam: poor dentition - Pulmonary Pulmonary: no respiratory distress - Cardiovascular Cardiovascular: regular rate and rhythym ANE Anesthesia Plan Anesthesia Plan: general endotracheal anesthesia
[2016-10-25] MEDS ORDERED: REMIFENTANIL HCL 1 MG VIAL ONE (19:01)
[2016-10-25] MEDS ORDERED: PROPOFOL/EMULSION 500 MG/50 ML BOTTLE IV ONE (19:01)
[2016-10-25] MEDS ORDERED: fentaNYL 100 MCG/2 ML INJ ONE ×2 (19:01→20:12)
--- NOTE | 2016-10-25 19:03 | POSTOPPROG ---
Post Op Note Date of Operation: 10/25/16 Surgeon: Chris Barber Anesthesiologist: Dr. Chavez Anesthesia: GET(General Endotracheal) (Nasal intubation) Pre-op Diagnosis: Odontogenic infection, dental caries, periodontal disease Post-op Diagnosis: Same Indication: Infection Procedure: Extraction teeth #19, 20, 21, 23, 26, 31, irrigation of previous I&D site Findings: Dental caries, chronic apical periodontitis, odontogenic abscess Inf/Abcess present in the surg proc area at time of surgery?: Yes Depth: Deep Incisional (Fascial) (sub mental, submandibular,) EBL: Minimal Complications: none Drains: Other (10 FR red rubber catheter in the previous I&D site) Specimen(s): None
--- NOTE | 2016-10-25 19:12 | PCMIDPN ---
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 Oral surgery consult with plans for dental extraction this p.m.. Discussed with patient that anticipated prolonged need for IV antibiotics in the setting of osteomyelitis. Continue Unasyn with probable transition to ertapenem to complete therapy for daily administration. Complicated by patient' s underlying bipolar disorder. * Bipolar disorder: Agitation significantly improved. Appreciate ongoing psychiatric care. 10/25/16 19:08 Subjective: Feels better today. Anxious to have dental surgery. Objective: Vital Signs Temp Pulse Resp BP Pulse Ox 36.6 C 98 18 122/78 H 92 10/25/16 19:01 10/25/16 19:01 10/25/16 19:01 10/25/16 19:01 10/25/16 19:01 Laboratory Results 10/22/16 04:49 10/22/16 04:49 10/24/16 10/25/16 10/26/16 05:59 05:59 05:59 Intake Total 1250 1600 Balance 1250 1600 Unasyn # 3 Blood cultures x2 no growth Abscess cultures with growth of group A Streptococcus and Streptococcus constellatus - Physical Exam General Appearance: alert, no apparent distress EENT: No scleral icterus, No conjunctival petechiae Respiratory: lungs clear, No respiratory distress Neck: other ( erythema, edema and quantity of purulent discharge all markedly decreased) Cardiac/Chest: regular rate, rhythm ICD10 Worksheet Patient Problems: Problems Problem Status Onset Facial abscess Acute
[2016-10-25] MEDS ORDERED: fentaNYL 100 MCG/2 ML INJ IVP PRN ×2 (19:49)
[2016-10-25] MEDS ORDERED: NALOXONE HCL 0.4 MG/ML INJ IVP PRN (19:49)
[2016-10-25] MEDS ORDERED: ONDANSETRON 4 MG/2 ML VIAL IVP PRN (19:49)
[2016-10-25] MEDS ORDERED: SUGAMMADEX SODIUM 200 MG/2 ML VIAL IVP ONE (19:50)
[2016-10-25] MEDS ORDERED: HYDROmorphONE/DILAUDID 1 MG/ML SYR ONE (20:12)
--- NOTE | 2016-10-25 20:20 | POSTANESTH ---
Post Anesthetic Evaluation Cardiovascular Status: Normal, Stable Respiratory Status: Tx Decrease in SpO2 Level of Consciousness/Mental Status: Mildly Sleepy, Arousable Pain Control: Adequate, Prn Tx Ordered Nausea/Vomiting Control: Adequate, Prn Tx Ordered
[2016-10-26] MEDS: AMPICILLIN/SULBACTAM 3 GM in NS 100 ML IV SCH ×5 (00:47→23:40)
--- NOTE | 2016-10-26 04:50 | GCON ---
[f rep st] CONSULTATION HISTORY OF PRESENT ILLNESS: The patient is a 71-year-old male with past medical history significant for bipolar disorder and smoking who was admitted to the hospital on October 21, 2016, for a left mandibular abscess/facial cellulitis. He was seen in the emergency department by Dr. Hannon who eventually performed incision and drainage of the suspected odontogenic abscess/ facial cellulitis. The patient is being followed by Dr. Ash Silva of Infectious Disease who consulted me today for evaluation of the patient's poor dentition as a possible source of his odontogenic abscess and mandibular osteomyelitis. He asked that I perform extraction of any indicated teeth in the operating room while the patient is an inpatient. Because his bipolar disorder is poorly managed, they are concerned that if he is treated as an outpatient he will be lost to followup. PAST MEDICAL HISTORY: 1. Bipolar disorder. 2. Cigarette and marijuana smoking. 3. Odontogenic abscess/facial cellulitis/mandibular osteomyelitis. MEDICATIONS: Albuterol, Zyprexa, olanzapine, and other inpatient medications, Unasyn, Clindamycin. SOCIAL HISTORY: Alcohol use, tobacco and marijuana use. EXAMINATION: GENERAL: The patient is awake, alert, and oriented. He is mobilizing around the room. HEAD AND NECK: Facial examination reveals multiple previous incision and drainage sites in the neck. There is active purulent drainage out of the submental incision and drainage site. No drain is noted. Intraoral examination reveals a poor generalized dentition with multiple decayed and periodontally involved teeth. The patient denies any tooth as being a source of his discomfort. IMAGING: CT scan from the time of admission shows the patient has multiple decayed teeth with chronic apical periodontitis, including large chronic apical periodontitis that is possibly associated with a residual root left from tooth # 19, it is also associated with retained tooth #21. ASSESSMENT AND PLAN: The patient is a 71-year-old male with a suspected odontogenic abscess associated with tooth #19 or 20, as well as other periodontal and carious teeth. Findings were discussed in detail with the patient, all questions were answered. I have instructed the patient that I would like to take him to the operating room to perform incision and drainage of his suspected odontogenic abscess and extraction of any indicated teeth. He is in agreement with this plan, he understands that we will be taking out any severely carious or periodontally involved teeth that could pose an infection risk in the future. He has requested we remove all of his remaining mandibular dentition but I informed him that I would like him to have a comprehensive workup performed by a dentist prior to removing his remaining teeth. He also has multiple decayed maxillary teeth that will not be addressed at this time. Risks, benefits, consequences, complications of the procedure were discussed in detail. Signed and verbal consent was obtained. I will take the patient to the operating room tonight for the procedure to be performed. /[id number]/MODL MTDD
--- NOTE | 2016-10-26 06:06 | GOP ---
[f rep st] OPERATIVE REPORT DATE OF OPERATION: SURGEON: Chris Barber DDS ANESTHESIA: General nasotracheal anesthesia. PREOPERATIVE DIAGNOSIS: 1. Dental caries. 2. Odontogenic abscess. 3. Periodontal disease. POSTOPERATIVE DIAGNOSIS: 1. Dental caries. 2. Odontogenic abscess. 3. Periodontal disease. PROCEDURE PERFORMED: 1. Extraction of teeth #19, 20, 21, 23, 26, 31. 2. Irrigation of previous submandibular and submental incision and drainage site. FINDINGS: ESTIMATED BLOOD LOSS: Minimal. INDICATIONS: The patient is a 71-year-old male, who was previously admitted to the hospital for a submandibular and submental space abscess, which was thought to be odontogenic in origin. I was consulted today by Infectious Disease to extract indicated teeth due to a suspected odontogenic source for the patient's abscess and osteomyelitis. Signed and verbal consent were obtained by the patient. The patient was kept n.p.o. all day. DESCRIPTION OF PROCEDURE: The patient was transported to the operating room and onto the OR table. Following successful nasotracheal intubation, the patient was prepped with Betadine and Peridex mouth rinse. A throat screen was placed, and the patient was draped in a standard fashion. Next, 8 cc of 1% lidocaine with 1:100,000 epinephrine was given in bilateral inferior alveolar nerve, long buccal, and mental blocks. Teeth #20, 21, 23, 26, 31 were elevated and removed in a routine fashion. Next, a #15 blade was used to make a crestal incision over the previously removed tooth #19 with a distal buccal release. Subperiosteal dissection was performed, and the residual root of tooth #19 was identified as well as copious granulation tissue and some purulence. A curette was used to remove this tissue as well as the root, and the site was thoroughly irrigated with normal saline. Sharp areas of bone were removed with a rongeur. No suturing was performed to allow residual infection to continue to drain. Next, attention was turned to the previous incision and drainage site in the patient's neck, the necrotic tissue was passively removed with bayonet forceps, and a 12-Swedish red rubber catheter was placed into the incision and drainage site, was irrigated with bacitracin impregnated normal saline. The drain was sutured into place with a 2-0 silk suture. The patient was allowed to awaken from anesthesia and transported to the PACU in stable condition. FLUIDS: 900 cc. DISPOSITION: The patient will remain admitted to the hospitalist service until discharge criteria are met. The drain can be used for irrigation daily until the patient is discharged from the hospital. The drain can be removed by the nursing staff. /[id number]/MODL MTDD
[2016-10-26] MEDS: NS 1,000 ML IV SCH (06:11)
[2016-10-26] MEDS: OLANZapine 5 MG TAB PO SCH ×2 (09:40→20:15)
[2016-10-26] MEDS: SENNOSIDES/DOCUSATE SODIUM TAB PO SCH ×2 (09:41→20:15)
--- NOTE | 2016-10-26 10:47 | HOSPPROG ---
Hospitalist Progress Note Assessment/Plan: #Left lower mandible abscess and likely osteomyelitis(Acute) * continue IV Unasyn * infectious Disease is following * Status post extraction * Will need long-term IV antibiotics #Hx of Bipolar, not on medications * discussed with Psychiatry * Better with Zyprexa * can increase in use for p.r.n. Subjective: No new complaints. Has surgery yesterday Objective: Vital Signs Temp Pulse Resp BP Pulse Ox 36.7 C 95 17 135/71 H 94 10/26/16 07:36 10/26/16 07:36 10/26/16 07:36 10/26/16 07:36 10/26/16 07:36 Laboratory Results 10/22/16 04:49 10/22/16 04:49 10/25/16 10/26/16 10/27/16 05:59 05:59 05:59 Intake Total 1600 1800 1100 Output Total 1275 Balance 3314 762 5075 - Physical Exam Constitutional: no apparent distress, appears nourished, not in pain Eyes: anicteric sclera, EOMI Ears, Nose, Mouth, Throat: other (Drain) Cardiovascular: regular rate and rhythym Respiratory: no respiratory distress, no rales or rhonchi, clear to auscultation Skin: warm Neurologic: AAOx3 Psychiatric: other (Speech a little bit more pressured, tangential and circular) ICD10 Worksheet Patient Problems: Problems Problem Status Onset Facial abscess Acute
--- NOTE | 2016-10-26 14:17 | PCMIDPN ---
Assessment/Plan: Assessment/Plan: 1 Left odontogenic abscess/jaw osteomyelitis: - s/p second I & d and extraction of 6 teeth yesterday. - blood cx ngtd -other cx showing Group A strep, Strep constellatus - Currently on Unasyn with likely transition to invanz at some point. -drain in place - will need prolonged course of antbx of at least 6 weeks given above. Meds unasyn 3g q6- Subjective: afebrile. less pain involving mouth/jaw. denies sob, abd pain or diarrhea. restless in the room. Objective: Vital Signs Temp Pulse Resp BP Pulse Ox 36.5 C 92 16 116/68 95 10/26/16 11:14 10/26/16 11:14 10/26/16 11:14 10/26/16 11:14 10/26/16 11:14 Laboratory Results 10/22/16 04:49 10/22/16 04:49 10/25/16 10/26/16 10/27/16 05:59 05:59 05:59 Intake Total 1600 1800 1100 Output Total 1275 Balance 6311 612 9969 - Physical Exam General Appearance: alert, no apparent distress Respiratory: lungs clear Neck: other (induration. drain noted. ) Cardiac/Chest: regular rate, rhythm Extremities: No swelling Abdomen: normal bowel sounds, non-tender, soft, No distended Skin: No erythema ICD10 Worksheet Patient Problems: Problems Problem Status Onset Facial abscess Acute
[2016-10-27] MEDS: AMPICILLIN/SULBACTAM 3 GM in NS 100 ML IV SCH ×3 (05:20→18:30)
[2016-10-27] MEDS: SENNOSIDES/DOCUSATE SODIUM TAB PO SCH ×2 (08:52→21:06)
[2016-10-27] MEDS: OLANZapine 5 MG TAB PO SCH (08:52)
--- NOTE | 2016-10-27 14:50 | HOSPPROG ---
Hospitalist Progress Note Assessment/Plan: #Left lower mandible abscess and likely osteomyelitis(Acute) * continue IV Unasyn * infectious Disease is following * Status post extraction * Will need long-term IV antibiotics #Hx of Bipolar, not on medications * will try zyprexa just at night Subjective: does not want to take zyprexa any longer Objective: Vital Signs Temp Pulse Resp BP Pulse Ox 36.6 C 84 20 132/77 H 94 10/27/16 12:26 10/27/16 12:26 10/27/16 12:26 10/27/16 12:26 10/27/16 12:26 Laboratory Results 10/22/16 04:49 10/22/16 04:49 10/26/16 10/27/16 10/28/16 05:59 05:59 05:59 Intake Total 1800 1300 Output Total 1275 800 300 Balance 525 500 -300 - Physical Exam Eyes: anicteric sclera, EOMI Ears, Nose, Mouth, Throat: moist mucous membranes Cardiovascular: regular rate and rhythym Respiratory: no respiratory distress, no rales or rhonchi, clear to auscultation Gastrointestinal: normoactive bowel sounds, soft, non-tender abdomen, no palpable masses Skin: warm Neurologic: AAOx3 Psychiatric: other (tangential and circular) ICD10 Worksheet Patient Problems: Problems Problem Status Onset Facial abscess Acute
[2016-10-27] MEDS ORDERED: ALTEPLASE 2 MG VIAL IVP PRN (15:55)
--- NOTE | 2016-10-27 16:13 | WOCRNPDOC ---
WOCRN Advanced Assessment Note - Skin Integrity Problem, Advanced Assess Left Anterior Lower Leg Dressing Type: Allevyn Life Dressing Description: Clean/Dry, Not Intact Exudate Amount: Scant Exudate Characteristic(s): Serosanguinous Integumentary Issue Intervention: Visualized Under Dressing Wound Bed Color: Brown, Red, Yellow Wound Bed Constitution: Granulation Tissue (70%), Mixed Loose & Adhered Slough/ Eschar (30%) Site Measurement - Head-to-Toe Length X Width X Depth (cm): 0.5x0.5x0.1 Skin Integrity Problem Comment: Healing wound of unknown etiology. No concerns. No sign of infection. Wound appeared to have dried out some. Will write wound orders of silvasorb and allevyn life. Wound care will sign off. Right Anterior Lower Leg Dressing Type: Gauze Dressing Description: Clean/Dry, Intact Exudate Amount: None Integumentary Issue Intervention: Visualized Under Dressing Site Measurement - Head-to-Toe Length X Width X Depth (cm): 0.3x0.3x0.1 Skin Integrity Problem Comment: Healing wound that is at least 3 weeks old as evidenced by epithelization. No concerns, no sign of infection. Wound care will sign off.
--- NOTE | 2016-10-27 19:16 | PCMIDPN ---
Assessment/Plan: Assessment/Plan: * Left jaw/neck abscess with concomitant jaw osteomyelitis: Left jaw and anterior neck markedly improved. Status post extraction of teeth on left mandibular region. Anticipate 6 week course of therapy in the setting of osteomyelitis. Continue Unasyn. Anticipate patient will need jail facility for completion of antibiotic therapy. This was discussed with patient and case management today. Will place PICC line tomorrow. Risks and benefits of PICC line discussed with patient today. * Bipolar disorder: Agitation significantly improved. 10/27/16 19:14 10/27/16 19:16 Subjective: Patient feels much better. No significant left neck pain. No diarrhea. Objective: Vital Signs Temp Pulse Resp BP Pulse Ox 36.7 C 92 18 136/73 H 95 10/27/16 16:16 10/27/16 16:16 10/27/16 16:16 10/27/16 16:16 10/27/16 16:16 Laboratory Results 10/22/16 04:49 10/22/16 04:49 10/26/16 10/27/16 10/28/16 05:59 05:59 05:59 Intake Total 1800 1300 500 Output Total 1275 800 300 Balance 525 500 200 Unasyn # 5 - Physical Exam General Appearance: alert, no apparent distress EENT: other (No purulence at site of extractions) Neck: other (Red rubber catheter in place; no expressible purulence; erythema almost resolved; edema markedly decreased) ICD10 Worksheet Patient Problems: Problems Problem Status Onset Facial abscess Acute
[2016-10-27] MEDS ORDERED: OLANZapine 5 MG TAB PO SCH (21:00)
[2016-10-28] MEDS: AMPICILLIN/SULBACTAM 3 GM in NS 100 ML IV SCH ×6 (00:01→23:15)
[2016-10-28 04:54] LABS: % IMMATURE GRANULYOCYTES 1.2 % (0.0-1.1); ADD DIFF? NO; ADD MORPH? NO; ADD SCAN? NO; ATYPICAL LYMPHOCYTE FLAG 20 (0-99); FRAGMENT RBC FLAG 0 (0-99); HEMATOCRIT 44.5 % (40.0-51.0); HEMOGLOBIN 14.6 g/dL (13.7-17.5); LEFT SHIFT FLG 0 (0-99); LIPEMIA HEMOLYSIS FLAG 80 (0-99); MEAN CELL HEMOGLOBIN 29.7 pg (27.9-34.1); MEAN CELL HEMOGLOBIN CONCENTR. 32.8 g/dL (32.4-36.7); MEAN CELL VOLUME 90.4 fL (81.5-99.8); MEAN PLATELET VOLUME 8.8 fL (8.7-11.7); PLATELET CLUMPS FLAG 0 (0-99); PLATELET COUNT 377 10^3/uL (150-400); RED BLOOD CELL COUNT 4.92 10^6/uL (4.40-6.38); RED CELL DISTRIBUTION WIDTH 12.5 % (11.5-15.2)
[2016-10-28 05:01] LABS: ALANINE AMINOTRANSFERASE 62 IU/L (21-72); ALBUMIN 3.4 g/dL (3.5-5.0); ALKALINE PHOSPHATASE 61 IU/L (38-126); ANION GAP 14 mEq/L (8-16); ASPARTATE AMINOTRANSFERASE 37 IU/L (17-59); BILIRUBIN,TOTAL 0.5 mg/dL (0.1-1.4); CARBON DIOXIDE 19 mEq/l (22-31); CHLORIDE 107 mEq/L (97-110); CREATININE 0.9 mg/dL (0.7-1.3); GLOMERULAR FILTRATION RATE > 60; GLUCOSE 102 mg/dL (70-100); SODIUM 140 mEq/L (134-144); TOTAL PROTEIN 7.2 g/dL (6.3-8.2)
[2016-10-28] MEDS: SENNOSIDES/DOCUSATE SODIUM TAB PO SCH ×2 (08:28→19:31)
--- NOTE | 2016-10-28 10:05 | HOSPPROG ---
Hospitalist Progress Note Assessment/Plan: DIAGNOSES: #Adult genetic abscess, possible osteomyelitis, neck abscess; suspect polymicrobial oral adrian infection -status post debridement and drainage of above -will need prolonged course of antibiotics, will review this with Dr. Silva, PICC line to be placed today #bipolar disorder -I suspect he is at or near his baseline though he may have aggravated this syndrome with use of marijuana -if he is not already seeing a psychiatrist he should be referred to an outpatient psychiatrist after discharge SUBJECTIVE: Almost no pain at his jaw and neck No sweats chills or other fever symptoms Eating well OBJECTIVE Vitals reviewed: Stable without fever Exam: alert oriented He has a somewhat giddy affect, with pressured speech and flight of ideas but is not delusional or agitated, interacts fairly normally neck now with minimal swelling and erythema, drain remains in place but little output skin warm dry color ok resps not labored lungs clear BSs heart regular abd soft nondistended nontender, bowel sounds present limbs warm, no edema iv site ok Microbiology: Strep growing from cultures Objective: Vital Signs Temp Pulse Resp BP Pulse Ox 36.4 C 88 18 135/80 H 95 10/28/16 07:14 10/28/16 07:14 10/28/16 07:14 10/28/16 07:14 10/28/16 07:14 Laboratory Results 10/28/16 04:40 10/28/16 04:40 10/27/16 10/28/16 10/29/16 06:59 06:59 06:59 Intake Total 500 1091 Output Total 800 750 Balance -300 341 ICD10 Worksheet Patient Problems: Problems Problem Status Onset Facial abscess Acute
--- NOTE | 2016-10-28 12:35 | PCMIDPN ---
Assessment/Plan: # Left jaw/neck abscess with concomitant jaw osteomyelitis. s/p multiple tooth extractions and submental debridement. CX showed GAS, streptococcus constellatus. WBC normalized. Cr normal --unasyn 3gm IV q6h through 12/02/16 --follow up and interagency set medication unasyn 3gm IV q6h Subjective: feeling better, talkative Objective: Vital Signs Temp Pulse Resp BP Pulse Ox 36.4 C 88 18 135/80 H 95 10/28/16 07:14 10/28/16 07:14 10/28/16 07:14 10/28/16 07:14 10/28/16 07:14 Laboratory Results 10/28/16 04:40 10/28/16 04:40 10/27/16 10/28/16 10/29/16 05:59 05:59 05:59 Intake Total 1300 611 480 Output Total 800 750 Balance 500 -139 480 - Physical Exam General Appearance: alert, no apparent distress EENT: other (L mandible site of tooth extraction healing well, drain in place L jaw) Respiratory: lungs clear, No accessory muscle use Cardiac/Chest: regular rate, rhythm, No systolic murmur Abdomen: non-tender, soft Male Genitalia: No alicea Skin: No rash Neuro/Psych: alert, oriented x 3, other (tangential) ICD10 Worksheet Patient Problems: Problems Problem Status Onset Facial abscess Acute
--- NOTE | 2016-10-28 14:30 | PDIAF ---
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 Code Status: Full Code - Medication Management Discharge Medications: Medications to Continue on Transfer NK [No Known Home Meds] 10/21/16 [Last Taken Unknown] Residential Designer Antibiotics: Unasyn 3gm IV [id number] Residential Designer Antibiotic Stop Date: 12/02/16 Discharge Medications: Refer to the Discharge Home Medication list for PRN reason. PICC Care - Routine: Yes - Labs/Radiology CBC Date: 11/01/16 ( weekly, Tuesday) CMP Date: 11/01/16 ( weekly, Tuesday) CRP Date: 11/01/16 ( , Tuesday) Call or Fax Lab and Imaging Results to: Sheryl Kapadia [phone] - Follow Up Care Current Providers and Referrals: Guillaume Carrero MD [Primary Care Provider] - As per Instructions Sheryl Kapadia MD [Medical Doctor] - 11/04/16 3:00 pm
[2016-10-28] MEDS: OLANZapine 5 MG TAB PO SCH (19:04)
[2016-10-29] MEDS: AMPICILLIN/SULBACTAM 3 GM in NS 100 ML IV SCH ×4 (05:32→23:23)
[2016-10-29] MEDS: SENNOSIDES/DOCUSATE SODIUM TAB PO SCH ×2 (09:49→21:03)
--- NOTE | 2016-10-29 11:40 | PDIAF ---
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 Code Status: Full Code - Medication Management Discharge Medications: Medications to Continue on Transfer Acetaminophen [Tylenol 325mg (*)] 650 mg PO Q4HRS PRN #0 tab 10/29/16 [Last Taken Unknown] Albuterol [Proventil Neb] 3 ml IH Q2HRS PRN #0 deyvial 10/29/16 [Last Taken Unknown] Ampicillin/Sulbactam [Unasyn] 3 gm IV Q6HRS vial 10/29/16 [Last Taken Unknown] OLANZapine [OLANZapine (*)] 10 mg PO HS tab 10/29/16 [Last Taken Unknown] Sennosides/Docusate Sodium [Senokot-S] 1 - 2 tab PO BID tab 10/29/16 [Last Taken Unknown] Computer Art Instructor Antibiotics: Unasyn 3gm IV [id number] Computer Art Instructor Antibiotic Stop Date: 12/02/16 Discharge Medications: Refer to the Discharge Home Medication list for PRN reason. PICC Care - Routine: Yes - Orders Services needed: Registered Nurse, Certified Fabrication Technician, Master Diamond Cleaner Diet Recommendation: no restrictions on diet Diet Texture: Regular Texture Diet Elisabeth: Not applicable - Labs/Radiology CBC Date: 11/01/16 ( weekly, Tuesday) CMP Date: 11/01/16 ( weekly, Tuesday) CRP Date: 11/01/16 ( weekly, Tuesday) Call or Fax Lab and Imaging Results to: Sheryl Kapadia [phone] - Follow Up Care Current Providers and Referrals: Guillaume Carrero MD [Primary Care Provider] - As per Instructions Sheryl Kapadia MD [Medical Doctor] - 11/04/16 3:00 pm Chris Barber DDS [Doctor of Dental Surgery] -
--- NOTE | 2016-10-29 17:24 | HOSPPROG ---
Hospitalist Progress Note Assessment/Plan: DIAGNOSES: #Odontogenic abscess, possible osteomyelitis, neck abscess; suspect polymicrobial oral adrian infection -status post debridement and drainage of above -will need prolonged course of antibiotics, I have reviewed with Dr Silva and Dr Kapadia #bipolar disorder -I suspect he is at or near his baseline though he may have aggravated this syndrome with use of marijuana outpt -if he is not already seeing a psychiatrist he should be referred to an outpatient psychiatrist after discharge PLANS: I did review the patient's case in detail with Dr. Kapadia today. At this point the patient is clinically stable improving nicely, and he is stable for discharge from hospital needing ongoing IV antibiotic therapy with Unasyn. However given his overall scenario and 4 times a day antibiotic is strongly recommended that he do this at a half-way facility. I as well as the nursing staff and case management and building code administrator have spoken to the patient at length on numerous occasions today about the recommendation that he discharged to half-way facility. We had actually recommended yesterday that he be discharged but he had visitors coming here last night and requested last night that he could stay today. Today he has flatly refusing to be transferred from here to half-way facility. The conversations have been complicated but essentially the patient is stating that he must go home on his way from here to the nursing facility and is referred fusing to be taken to the nursing facility by ambulance transport. He is stating that he will have a friend take him to the half-way facility tomorrow after they take him home to take care of some things but he does not have anyone who is agreeing to do this transporting. He has several friends that he says he is talking to but he has not been able to tell us that anyone of them is a committing or able to take him. We did speak to 1 of these friends who said they can come and at least visit with him tomorrow but they live in [facility] and are unable to come here today. We did discuss with the patient that it is within his rights to request a Medicare review of his discharge. However he is declining to initiate a review with Medicare and is declining to sign the form that notified him of his rights to for review and how to obtain the review. At this point is unclear what will take to get the patient to agree to leave the hospital. He is stating that someone will be here at 10 o'clock to transport him to the nursing facility but again there is no lung with whom he has had any contact that has agreed to do this transport and he is still stating he will refuse to go by ambulance. He has numerous times stated that he will offer us up the room that he is staying in here and he will stay on a couch or chair out in the hallway and made other entirely untenable suggestions as to how he might stay here and not take upper room. It was reviewed that none of these options are at all a possibility. I will continue to work with our case management group to try to come to a solution for his discharge. However it appears as he is refusing to leave that he will be here overnight tonight. SUBJECTIVE: the patient has no pain, fever symptoms, nausea, and he is eating well. OBJECTIVE Vitals reviewed: Stable without fever Exam: alert oriented neck now with no swelling or erythema, the drain has been removed and there is no accumulation of fluid or other problems with that resps not labored heart regular limbs warm, no edema iv site ok Microbiology: 2 different Strep growing from cultures, suggest oral adrian as expected owl with bulb Objective: Vital Signs Temp Pulse Resp BP Pulse Ox 36.6 C 98 20 128/82 H 95 10/29/16 08:15 10/29/16 08:15 10/29/16 08:15 10/29/16 08:15 10/29/16 08:15 Laboratory Results 10/28/16 04:40 10/28/16 04:40 10/28/16 10/29/16 10/30/16 06:59 06:59 06:59 Intake Total 1091 2285 Output Total 750 300 Balance 341 1985 - Time Spent With Patient Time Spent with Patient: greater than 35 minutes Time Spent with Patient: Greater than 35 minutes spent on this patients care, greater than 50% of time spent counseling, educating, and coordinating care regarding the above mentioned plan. ICD10 Worksheet Patient Problems: Problems Problem Status Onset Facial abscess Acute
--- NOTE | 2016-10-29 17:31 | HOSPPROG ---
Hospitalist Progress Note Assessment/Plan: DIAGNOSES: #Odontogenic abscess, possible osteomyelitis, neck abscess; suspect polymicrobial oral adrian infection -status post debridement and drainage of above -will need prolonged course of antibiotics, I have reviewed with Dr Silva and Dr Kapadia #bipolar disorder -I suspect he is at or near his baseline though he may have aggravated this syndrome with use of marijuana outpt -if he is not already seeing a psychiatrist he should be referred to an outpatient psychiatrist after discharge PLANS: I did review the patient's case in detail with Dr. Kapadia today. At this point the patient is clinically stable improving nicely, and he is stable for discharge from hospital needing ongoing IV antibiotic therapy with Unasyn. However given his overall scenario and 4 times a day antibiotic is strongly recommended that he do this at a retirement facility. I as well as the nursing staff and case management and window systems administrator have spoken to the patient at length on numerous occasions today about the recommendation that he discharged to retirement facility. We had actually recommended yesterday that he be discharged but he had visitors coming here last night and requested last night that he could stay today. Today he has flatly refusing to be transferred from here to retirement facility. The conversations have been complicated but essentially the patient is stating that he must go home on his way from here to the nursing facility and is referred fusing to be taken to the nursing facility by ambulance transport. He is stating that he will have a friend take him to the retirement facility tomorrow after they take him home to take care of some things but he does not have anyone who is agreeing to do this transporting. He has several friends that he says he is talking to but he has not been able to tell us that anyone of them is a committing or able to take him. We did speak to 1 of these friends who said they can come and at least visit with him tomorrow but they live in [facility] [place] and are unable to come here today. We did discuss with the patient that it is within his rights to request a Medicare review of his discharge. However he is declining to initiate a review with Medicare and is declining to sign the form that notified him of his rights to for review and how to obtain the review. At this point is unclear what will take to get the patient to agree to leave the hospital. He is stating that someone will be here at 10 o'clock to transport him to the nursing facility but again there is no lung with whom he has had any contact that has agreed to do this transport and he is still stating he will refuse to go by ambulance. He has numerous times stated that he will offer us up the room that he is staying in here and he will stay on a couch or chair out in the hallway and made other entirely untenable suggestions as to how he might stay here and not take upper room. It was reviewed that none of these options are at all a possibility. I will continue to work with our case management group to try to come to a solution for his discharge. However it appears as he is refusing to leave that he will be here overnight tonight. SUBJECTIVE: the patient has no pain, fever symptoms, nausea, and he is eating well. OBJECTIVE Vitals reviewed: Stable without fever Exam: alert oriented neck now with no swelling or erythema, the drain has been removed and there is no accumulation of fluid or other problems with that resps not labored heart regular limbs warm, no edema iv site ok Microbiology: 2 different Strep growing from cultures, suggest oral adrian as expected owl with bulb Objective: Vital Signs Temp Pulse Resp BP Pulse Ox 36.6 C 98 20 128/82 H 95 10/29/16 08:15 10/29/16 08:15 10/29/16 08:15 10/29/16 08:15 10/29/16 08:15 Laboratory Results 10/28/16 04:40 10/28/16 04:40 10/28/16 10/29/16 10/30/16 06:59 06:59 06:59 Intake Total 1091 2285 Output Total 750 300 Balance 341 1985 - Time Spent With Patient Time Spent with Patient: greater than 35 minutes Time Spent with Patient: Greater than 35 minutes spent on this patients care, greater than 50% of time spent counseling, educating, and coordinating care regarding the above mentioned plan. ICD10 Worksheet Patient Problems: Problems Problem Status Onset Facial abscess Acute
[2016-10-29] MEDS: OLANZapine 5 MG TAB PO SCH (21:03)
[2016-10-29 21:17] VITALS: RESP 18
[2016-10-30] MEDS: AMPICILLIN/SULBACTAM 3 GM in NS 100 ML IV SCH ×2 (04:53→11:32)
[2016-10-30 05:20] VITALS: BP 125/82; PULSE 87; TEMP 97.3; O2SAT 96
[2016-10-30] MEDS: SENNOSIDES/DOCUSATE SODIUM TAB PO SCH (09:23)
--- NOTE | 2016-10-30 11:53 | PDIAF ---
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 Code Status: Full Code - Medication Management Discharge Medications: Medications to Continue on Transfer Acetaminophen [Tylenol 325mg (*)] 650 mg PO Q4HRS PRN #0 tab 10/29/16 [Last Taken Unknown] Albuterol [Proventil Neb] 3 ml IH Q2HRS PRN #0 deyvial 10/29/16 [Last Taken Unknown] Ampicillin/Sulbactam [Unasyn] 3 gm IV Q6HRS vial 10/29/16 [Last Taken Unknown] OLANZapine [OLANZapine (*)] 10 mg PO HS tab 10/29/16 [Last Taken Unknown] Sennosides/Docusate Sodium [Senokot-S] 1 - 2 tab PO BID tab 10/29/16 [Last Taken Unknown] Accessibility Lift Technician Antibiotics: Unasyn 3gm IV [id number] Accessibility Lift Technician Antibiotic Stop Date: 12/02/16 Discharge Medications: Refer to the Discharge Home Medication list for PRN reason. PICC Care - Routine: Yes - Orders Services needed: Registered Nurse, Certified Sheet Taker, Master Personal Attendant Diet Recommendation: no restrictions on diet Diet Texture: Regular Texture Diet Elisabeth: Not applicable - Labs/Radiology CBC Date: 11/01/16 ( weekly, Tuesday) CMP Date: 11/01/16 ( weekly, Tuesday) CRP Date: 11/01/16 ( weekly, Tuesday) Call or Fax Lab and Imaging Results to: Sheryl Kapadia [phone] - Follow Up Care Current Providers and Referrals: Guillaume Carrero MD [Primary Care Provider] - As per Instructions Chris Barber DDS [Doctor of Dental Surgery] - Sheryl Kapadia MD [Medical Doctor] - 11/04/16 3:00 pm
--- NOTE | 2016-10-30 11:56 | PDIAF ---
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 Code Status: Full Code - Medication Management Discharge Medications: Medications to Continue on Transfer Acetaminophen [Tylenol 325mg (*)] 650 mg PO Q4HRS PRN #0 tab 10/29/16 [Last Taken Unknown] Albuterol [Proventil Neb] 3 ml IH Q2HRS PRN #0 deyvial 10/29/16 [Last Taken Unknown] Ampicillin/Sulbactam [Unasyn] 3 gm IV Q6HRS vial 10/29/16 [Last Taken Unknown] Sennosides/Docusate Sodium [Senokot-S] 1 - 2 tab PO BID tab 10/29/16 [Last Taken Unknown] Hydraulics Teacher Antibiotics: Unasyn 3gm IV [id number] Hydraulics Teacher Antibiotic Stop Date: 12/02/16 Discharge Medications: Refer to the Discharge Home Medication list for PRN reason. PICC Care - Routine: Yes - Orders Services needed: Registered Nurse, Certified Hris Analyst, Master Business Account Specialist Diet Recommendation: no restrictions on diet Diet Texture: Regular Texture Diet Elisabeth: Not applicable - Labs/Radiology CBC Date: 11/01/16 ( weekly, Tuesday) CMP Date: 11/01/16 ( weekly, Tuesday) CRP Date: 11/01/16 ( weekly, Tuesday) Call or Fax Lab and Imaging Results to: Sheryl Kapadia [phone] - Follow Up Care Current Providers and Referrals: Guillaume Carrero MD [Primary Care Provider] - As per Instructions Chris Barber DDS [Doctor of Dental Surgery] - Sheryl Kapadia MD [Medical Doctor] - 11/04/16 3:00 pm
--- NOTE | 2016-10-30 12:21 | PDDCSUM ---
Discharge Summary Discharge Summary: DISCHARGE DIAGNOSES: #Odontogenic abscess, possible osteomyelitis, neck abscess; suspect polymicrobial oral adrian infection -status post debridement and drainage of above #bipolar disorder CONSULTANTS: Dr. Barber of oral surgery Dr. Ash Silva of infectious disease PROCEDURES: Incision and drainage and debridement of dental and neck abscess HOSPITAL COURSE SUMMARY: This patient presents the hospital with facial and dental pain and has another done to check abscess and neck abscess Along with osteomyelitis with erosion through soft tissue say that he has pus draining out through his cheek. He was cultured and found to have oral mucosa with 2 different strep organisms. He was started on appropriate antibiotics and went to the operating room with Dr. Barber where he had debridement and incision and drainage. He had evidence of good resolution of his infectious process here in the drain was removed without difficulty. Because of suspected osteomyelitis on imaging he will require 6 weeks of antibiotic therapies intravenously. The patient is prescribed Unasyn 4 times daily intravenously for his infection through December 02 Complicating all this the patient has chronic bipolar disorder and is symptomatic with that. He is not taking any medications for that as he comes to the hospital and declined to take medications here in the hospital. he was not overtly psychotic but had fairly pressured speech and flight of ideas. For the most part aside from not want to take any antipsychotics he was very compliant with medical care here. However we did run into some issues as we tried to arrange nursing facility care for his ongoing IV antibiotics. Eventually after great efforts at negotiating with the patient we finally got him agree to go to [facility] for his ongoing IV antibiotics. A PICC catheter is in place. PENDING TEST RESULTS: none MEDICATION CHANGES: Addition of Unasyn intravenously via PICC catheter 4 times daily through December 02 FOLLOW-UP PLAN: He is transferred at this time to [facility] where he will continue ongoing IV antibiotic therapy He will follow up with Dr. Barber in 2 weeks and with the [facility] week Greater than 35 minutes bedside and care coordination time today
== END 2016-10-30 12:21 | DRG 580 ==
LOC: OBSVTOIN 16:18 → F1N 17:29
PROVIDERS: ADMIT Family Medicine; ATTEND Internal Medicine
PROC: 0J9100Z Drainage of Face Subcutaneous Tissue and Fascia with Drainage Device, Open Approach (ICD-10-PCS; principal; 2016-10-21)
PROC: 0CJS8ZZ Inspection of Larynx, Via Natural or Artificial Opening Endoscopic (ICD-10-PCS; principal; 2016-10-21)
PROC: 0J9400Z Drainage of Right Neck Subcutaneous Tissue and Fascia with Drainage Device, Open Approach (ICD-10-PCS; principal; 2016-10-21)
PROC: 0CTX0Z1 Resection of Lower Tooth, Multiple, Open Approach (ICD-10-PCS; 2016-10-25)
PROC: 3E013GC Introduction of Other Therapeutic Substance into Subcutaneous Tissue, Percutaneous Approach (ICD-10-PCS; 2016-10-25)
PROC: 02HV33Z Insertion of Infusion Device into Superior Vena Cava, Percutaneous Approach (ICD-10-PCS; 2016-10-28)
DX: L02.11 Cutaneous abscess of neck (principal); L03.211 Cellulitis of face; B95.0 Streptococcus, group A, as the cause of diseases classified elsewhere; B95.4 Other streptococcus as the cause of diseases classified elsewhere; K04.7 Periapical abscess without sinus; M27.2 Inflammatory conditions of jaws; K04.4 Acute apical periodontitis of pulpal origin; K02.9 Dental caries, unspecified; F31.9 Bipolar disorder, unspecified; F17.210 Nicotine dependence, cigarettes, uncomplicated
CPT/HCPCS: 80307; 82947-QW; 96365; A9585; C1751; G0480; J0295; J1170; J2250; J2704; J3010; Q9967

== ENCOUNTER 2016-11-06 20:57 | Emergency (ER) | payer OTHER ==
--- NOTE | 2016-11-06 21:20 | EDPHY ---
H & P Time Seen by Provider: 11/06/16 21:08 HPI/ROS: Chief complaint: Requesting help iinfusing IV antibiotics through PICC line History of present illness: This is a 71-year-old male who presents to the emergency department requesting help infusing IV antibiotics through his PICC line. Patient was admitted to this hospital earlier this month for an odontogenic abscess and osteomyelitis. He was started on IV Unasyn and had surgical debridement. Ultimately he was discharged from the hospital with a PICC line in place and sent to [facility] to get IV Unasyn. Apparently yesterday he was discharged. He is supposed to continue IV antibiotics. He has them all with him would like help infusing them is he does not know how to do this. He feels like his symptoms are improving. He has no new complaints. Review of systems: A 10 point review of systems was obtained and other than described above was negative - Medical/Surgical History Hx Asthma: No Hx Chronic Respiratory Disease: No Hx Diabetes: No Hx Cardiac Disease: No Hx Renal Disease: No Hx Cirrhosis: No Hx Alcoholism: No Hx HIV/AIDS: No Hx Splenectomy or Spleen Trauma: No Other PMH: Bipolar, appendectomy, cornea transplant x 2. - Social History Smoking Status: Current some day smoker - Physical Exam Exam: General Appearance: Alert, nontoxic. Eyes: Pupils equal and round no injection. ENT: Erythema and edema to the left side of the mandible. Respiratory: Chest is non tender, lungs are clear to auscultation. Cardiac: regular rate and rhythm Gastrointestinal: Abdomen is soft and non tender, no masses, bowel sounds normal. Musculoskeletal: Neck is supple and non tender. Extremities have full range of motion and are non tender. Skin: No rashes or lesions. Constitutional: Initial Vital Signs Temperature (C) 37 C 11/06/16 21:00 Heart Rate 92 11/06/16 21:00 Respiratory Rate 18 11/06/16 21:00 Blood Pressure 149/77 H 11/06/16 21:00 O2 Sat (%) 94 11/06/16 21:00 O2 Delivery Mode Room Air Allergies/Adverse Reactions: No Known Allergies Allergy (Unverified 10/21/16 11:51) Home Medications: Medication Instructions Recorded Acetaminophen [Tylenol 325mg (*)] 650 mg PO Q4HRS PRN #0 tab 10/29/16 Albuterol [Proventil Neb] 3 ml IH Q2HRS PRN #0 deyvial 10/29/16 Ampicillin/Sulbactam [Unasyn] 3 gm IV Q6HRS vial 10/29/16 Sennosides/Docusate Sodium 1 - 2 tab PO BID tab 10/29/16 [Senokot-S] Amoxicillin/Clavulanate Pot 875 mg PO BID 14 Days 11/06/16 [Augmentin 875 MG TAB (*)] Medical Decision Making ED Course/Re-evaluation: Patient is discussed with my secondary supervising physician Dr. Nate Butt. Patient presents to the emergency department asking for help to infuse IV antibiotics through his PICC line. I have consulted with Infectious Disease, Dr. Sheryl Kapadia. She knows this patient well. Apparently patient was not supposed to be discharged from [facility], nevertheless this occurred. She is very concerned as he has severe bipolar disease not well controlled and does not believe he should continue to have the PICC line in place on an outpatient basis. She did see him 2 days ago and felt like he was improving. She requests that the PICC line be removed. She asked that patient be started on oral Augmentin 875 mg twice a day for 2 weeks. Patient does have an appointment to see her in clinic next week. The PICC line has been removed and patient started on Augmentin. He is encouraged to follow up with Dr. Kapadia for continued care. Return precautions are given. - Data Points Medications Given: Discontinued Medications Amoxicillin/Clavulanate Potassium (Augmentin 875mg) 875 mg PO EDNOW ONE PRN Reason: Protocol Stop: 11/06/16 22:23 Last Admin: 11/06/16 22:29 Dose: 875 mg Departure - Departure Disposition: Home, Routine, Self-Care Clinical Impression: Facial abscess Condition: Good Instructions: Abscess (ED) Additional Instructions: Follow-up with Dr. Kapadia for continued care next week If symptoms worsen or new symptoms develop return to the emergency room for recheck Referrals: Sheryl Kapadia MD [Medical Doctor] - As per Instructions Prescriptions: Amoxicillin/Clavulanate Pot [Augmentin 875 MG TAB (*)] 875 mg PO BID 14 Days
[2016-11-06 22:07] VITALS: PULSE 92; RESP 18
[2016-11-06 22:19] VITALS: BP 143/83; TEMP 97.9; O2SAT 96
[2016-11-06] MEDS ORDERED: AMOXICILLIN/CLAVULANATE POT 875/125 MG TAB PO ONE (22:22)
== END 2016-11-06 22:45 | disposition home or self-care (01) ==
DX: L02.01 Cutaneous abscess of face (principal); F17.200 Nicotine dependence, unspecified, uncomplicated